=== PATIENT | male | born 1955 | race Caucasian/White ===

== ENCOUNTER → 2025-01-23 06:45 | Outpatient (REF) | payer OTHER, SELFPAY | LOC: MRI 3T 06:45 | PROVIDERS: ATTENDING PHYSICIAN Psychiatry & Neurology Neurology; FAMILY PHYSICIAN Family Medicine | DX: R27.0 Ataxia, unspecified (principal) | CPT/HCPCS: 70551; 72141 ==

== ENCOUNTER → 2025-01-30 07:24 | Outpatient (REF) | payer OTHER, SELFPAY | LOC: RAD 07:24 | PROVIDERS: ATTENDING PHYSICIAN Nurse Practitioner Family; FAMILY PHYSICIAN Family Medicine | DX: I63.9 Cerebral infarction, unspecified (principal) | CPT/HCPCS: 70496; 70498; Q9967 ==